=== PATIENT | male | born 1935 | race Caucasian/White ===

== ENCOUNTER 2018-04-09 10:39 | Inpatient (IN) | payer OTHER ==
[~2018-04-09] VITALS: Ht 180.3 cm; Wt 90.3 kg
[2018-04-09] VITALS (11 sets, daily range): BP systolic 94–150
[~2018-04-09 10:39] MED LIST: AZIT500T5; EZET1TAB29; LISI-600
[2018-04-09] MEDS ORDERED: NACL 0.9% 1,000 ML IV ONE (10:53)
[2018-04-09 11:18] LABS: BASOPHILS % (AUTO) 0.7 % (0.0-2.0); EOSINOPHILS # (AUTO) 0.2 K/uL (0.0-0.4); EOSINOPHILS % (AUTO) 3.1 % (0.0-4.0); HEMATOCRIT 44.7 % (36-54); HEMOGLOBIN 14.6 g/dL (14.0-18.0); LYMPHOCYTES # (AUTO) 0.8 K/uL (1.0-5.5); LYMPHOCYTES % (AUTO) 14.1 % (20.5-51.5); MEAN CORPUSCULAR HEMOGLOBIN 32 pg (27-31); MEAN CORPUSCULAR HGB CONC 33 % (32-36); MEAN CORPUSCULAR VOLUME 98 fL (79.0-98.0); MONOCYTES # (AUTO) 0.5 K/uL (0.0-1.0); MONOCYTES % (AUTO) 8.3 % (1.7-9.3); NEUTROPHILS # (AUTO) 4.2 K/uL (1.8-7.7); NEUTROPHILS % (AUTO) 73.8 % (40.0-70.0); PLATELET COUNT (AUTO) 159 K/uL (130-430); RED BLOOD CELL COUNT(AUTO) 4.56 MIL/uL (4.2-6.2); RED CELL DISTRIBUTION WIDTH 13.4 % (9.0-15.0); WHITE BLOOD COUNT (AUTO) 5.8 K/uL (4.8-10.8)
[2018-04-09 11:37] LABS: PROTHROMBIN TIME 9.9 SECS (9.5-12.5)
[2018-04-09 11:42] LABS: BILIRUBIN,URINE NEGATIVE (NEGATIVE); BLOOD, URINE NEGATIVE (NEGATIVE); CLARITY/URINE CLEAR (CLEAR); COLOR,URINE YELLOW (YELLOW); GLUCOSE,URINE NEGATIVE (NEGATIVE); KETONES,URINE NEGATIVE (NEGATIVE); LEUKOCYTE ESTERASE ,URINE NEGATIVE (NEGATIVE); NITRITE, URINE NEGATIVE (NEGATIVE); PH,URINE 5.5 (5.0-8.0); PROTEIN URINE NEGATIVE (NEGATIVE); UROBILINOGEN,URINE 0.2 (0.2-1.0)
[2018-04-09 12:04] LABS: ANION GAP 9 (5-15); CALCIUM 8.9 mg/dL (8.4-11.0); CHLORIDE 108 mmol/L (98-107); CREATININE 1.91 mg/dL (0.55-1.30); GLUCOSE 85 mg/dL (70-99); POTASSIUM 4.5 mmol/L (3.5-5.1); SODIUM SERUM 140 mmol/L (136-145); UREA NITROGEN, BLOOD 33 mg/dL (8-21)
[2018-04-09 12:08] LABS: ALANINE AMINOTRANSFERASE 42 U/L (12-78); ALBUMIN 3.3 g/dL (3.4-4.8); AMYLASE 78 U/L (0-100); ASPARTATE AMINOTRANSFERASE 30 U/L (10-37); LIPASE 146 U/L (73-393); TOTAL BILIRUBIN 1.1 mg/dL (0.0-1.0)
[2018-04-09] MEDS ORDERED: TAMSULOSIN HCL 0.4 MG CAP PO ONE (16:00)
[2018-04-09 16:39] LABS: FREE T4 (FREE THYROXINE) 0.7 ng/dL (0.6-1.6); THYROID STIMULATING HORMONE 2.83 uIu/mL (0.34-4.82)
[2018-04-09] MEDS: D5/0.45 NS 1,000 ML IV SCH (16:43)
[2018-04-10] VITALS (23 sets, daily range): BP systolic 96–168
[2018-04-10] MEDS ORDERED: DOPamine PREMIX 250 ML IV PRN (00:45)
[2018-04-10 06:38] LABS: BASOPHILS % (AUTO) 0.7 % (0.0-2.0); EOSINOPHILS # (AUTO) 0.3 K/uL (0.0-0.4); EOSINOPHILS % (AUTO) 5.4 % (0.0-4.0); HEMATOCRIT 39.2 % (36-54); HEMOGLOBIN 13.2 g/dL (14.0-18.0); LYMPHOCYTES # (AUTO) 0.8 K/uL (1.0-5.5); LYMPHOCYTES % (AUTO) 13.6 % (20.5-51.5); MEAN CORPUSCULAR HEMOGLOBIN 33 pg (27-31); MEAN CORPUSCULAR HGB CONC 34 % (32-36); MEAN CORPUSCULAR VOLUME 98 fL (79.0-98.0); MONOCYTES # (AUTO) 0.5 K/uL (0.0-1.0); MONOCYTES % (AUTO) 8.9 % (1.7-9.3); NEUTROPHILS % (AUTO) 71.4 % (40.0-70.0); PLATELET COUNT (AUTO) 137 K/uL (130-430); RED CELL DISTRIBUTION WIDTH 13.2 % (9.0-15.0); WHITE BLOOD COUNT (AUTO) 5.6 K/uL (4.8-10.8)
[2018-04-10 07:23] LABS: ALANINE AMINOTRANSFERASE 32 U/L (12-78); ALBUMIN 2.7 g/dL (3.4-4.8); ANION GAP 6 (5-15); ASPARTATE AMINOTRANSFERASE 25 U/L (10-37); CALCIUM 8.2 mg/dL (8.4-11.0); CHLORIDE 108 mmol/L (98-107); CHOLESTEROL 102 mg/dL (<200); CREATININE 1.62 mg/dL (0.55-1.30); GLUCOSE 98 mg/dL (70-99); HDL CHOLESTEROL 39 mg/dL (>45); LDL CHOLESTEROL 55 mg/dL (<100); PHOSPHORUS 3.8 mg/dL (2.7-4.5); POTASSIUM 4.5 mmol/L (3.5-5.1); SODIUM SERUM 138 mmol/L (136-145); TOTAL BILIRUBIN 1.3 mg/dL (0.0-1.0); TRIGLYCERIDES 86 mg/dL (30-150); UREA NITROGEN, BLOOD 30 mg/dL (8-21)
[2018-04-10] MEDS: TAMSULOSIN HCL 0.4 MG CAP PO SCH (09:00)
[2018-04-10] MEDS: LISINOPRIL 10 MG TABLET (PRINIVIL) PO SCH (09:00)
[2018-04-10] MEDS: EZETIMIBE/SIMVASTATIN 1 TABLET PO SCH (09:00)
[2018-04-10] MEDS: D5/0.45 NS 1,000 ML IV SCH (10:00)
[2018-04-10] MEDS ORDERED: POLYMYXIN 500,000/BACIT.10,000 UNITS in NS IRR 1 L IR ONE (15:10)
[2018-04-10] MEDS ORDERED: PROPOFOL 200MG/ 20ML VIAL (DIPRIVAN) IV ONE (15:30)
[2018-04-10] MEDS ORDERED: NS 1000 ML IV.SOLN IV ONE (15:30)
[2018-04-10] MEDS ORDERED: LR 1,000 ML IV.SOLN IV ONE (15:30)
[2018-04-10] MEDS ORDERED: MIDAZOLAM HCL 5 MG/5 ML VIAL IVP ONE (15:30)
[2018-04-10] MEDS ORDERED: LIDOCAINE 1% 10 MG/ML, 20 ML MDV INJ ONE (15:30)
[2018-04-10] MEDS ORDERED: CEFAZOLIN 2 GM IVPB PREMIX 50 ML IV ONE (15:30)
[2018-04-10] MEDS ORDERED: MIDAZOLAM HCL 2 MG/2 ML VIAL (VERSED) ONE (15:50)
[2018-04-10] MEDS ORDERED: IOHEXOL 0 ML IV ONE (15:56)
[2018-04-10] MEDS ORDERED: fentaNYL CITRATE/PF 100 MCG/2 ML AMP IVP PRN ×2 (16:00)
[2018-04-10] MEDS ORDERED: ONDANSETRON HCL 4 MG/2 ML VIAL IVP PRN (16:00)
[2018-04-10] MEDS: DOXYCYCLINE HYCLATE 100 MG CAPSULE PO SCH (21:43)
[2018-04-10] MEDS: amLODIPine BESYLATE 10 MG TABLET PO SCH (22:24)
[2018-04-10] MEDS ORDERED: amLODIPine BESYLATE 10 MG TABLET ONE (22:30)
[2018-04-11] MEDS: D5/0.45 NS 1,000 ML IV SCH ×2 (00:59→04:30)
[2018-04-11 02:24] VITALS: BP_SYST 148
[2018-04-11 08:00] VITALS: BP_SYST 121
[2018-04-11 08:20] LABS: FREE PSA <0.01 ng/mL; PROSTATE SPECIFIC AG TOTAL <0.1 ng/mL (0.0-4.0)
[2018-04-11] MEDS: amLODIPine BESYLATE 10 MG TABLET PO SCH (09:00)
[2018-04-11] MEDS: TAMSULOSIN HCL 0.4 MG CAP PO SCH (09:00)
[2018-04-11] MEDS: DOXYCYCLINE HYCLATE 100 MG CAPSULE PO SCH (09:46)
[2018-04-11] MEDS: EZETIMIBE/SIMVASTATIN 1 TABLET PO SCH (09:46)
[2018-04-11] MEDS: LISINOPRIL 10 MG TABLET (PRINIVIL) PO SCH (09:46)
[2018-04-11 12:23] VITALS: BP_SYST 143
[2018-04-11 12:27] VITALS: BP_SYST 143
== END 2018-04-11 13:00 | disposition home or self-care (01) | DRG 242 ==
LOC: SED 10:39 → SIC 13:42 → STU 04-10 22:57
PROVIDERS: ADMIT Internal Medicine; ATTEND Internal Medicine
PROC: 02HK3JZ Insertion of Pacemaker Lead into Right Ventricle, Percutaneous Approach (ICD-10-PCS; 2018-04-10)
PROC: 02H63JZ Insertion of Pacemaker Lead into Right Atrium, Percutaneous Approach (ICD-10-PCS; 2018-04-10)
PROC: 0JH606Z Insertion of Pacemaker, Dual Chamber into Chest Subcutaneous Tissue and Fascia, Open Approach (ICD-10-PCS; principal; 2018-04-10 15:00)
DX: I44.2 Atrioventricular block, complete (principal); N17.0 Acute kidney failure with tubular necrosis; I12.9 Hypertensive chronic kidney disease with stage 1 through stage 4 chronic kidney disease, or unspecified chronic kidney disease; N18.9 Chronic kidney disease, unspecified; E78.5 Hyperlipidemia, unspecified; Z79.899 Other long term (current) drug therapy; Z90.79 Acquired absence of other genital organ(s)
CPT/HCPCS: 36415; 71045; 76000; 80053; 80061; 81003; 82150-TC; 82550-TC; 83690-TC; 83735-TC; 84100-TC; 84439; 84443-TC; 84484; 85025; 85610-TC; 85730-TC; 87081; 93005; 93306; 94010; 96360; 99285; C1751; C1785; C1894; C1898; G0103; G0378; J0690; J1265; J2001; J2250; J2704; J3465; J7030; J7120; Q9967